=== PATIENT | female | born 1970 | race Caucasian/White ===

== ENCOUNTER 2020-09-13 09:06 | Outpatient (CLI) | payer OTHER, SELFPAY ==
--- NOTE | 2020-09-13 09:12 | MM_ITS ---
WS: [id number] Exam: [place] [id number] Date/Time of Exam: 09/13/2020 9:21 AM Reason For Exam: SCREENING VIEWS: MLO and CC views both breasts. Comparison made with prior exam of 09/06/2018. Findings: There was no sign of mass, architectural distortion or suspicious calcification in either breast. Fa tty MM/[place] [id number] Impression: BI-RADS: 2-Benign FOLLOW-UP: 1 Year Follow-up This mammogram was also analyzed by the Computer Aided Detection System R2 Imag e Samples And Repairs Preparer.
== END 2020-09-13 09:07 | disposition home or self-care (01) ==
LOC: RADSHAW 09:09
PROVIDERS: PCP Internal Medicine; Visit Provider Internal Medicine
DX: Z12.31 Encounter for screening mammogram for malignant neoplasm of breast (principal)
CPT/HCPCS: 77067

== ENCOUNTER 2021-04-11 11:41 | Outpatient (CLI) | payer OTHER, SELFPAY ==
--- NOTE | 2021-04-11 11:53 | XR_ITS ---
WS: [id number] Exam: XR foot RT min 3V* [id number] Date/Time of Exam: 04/11/2021 11:53 AM Reason For Exam: RIGHT FOOT/ANKLE PAIN There is a nondisplaced fracture involving the proximal fifth metatarsal. No other fractures are seen . No soft tissue foreign bodies. Small plantar heel spur. XR/XR foot RT min 3V* [id number] IMPRESSION: 1. Nondisplaced proximal fifth metatarsal fracture.
== END 2021-04-11 11:42 | disposition home or self-care (01) ==
PROVIDERS: PCP Internal Medicine; Visit Provider Nurse Practitioner Family
DX: S92.354A Nondisplaced fracture of fifth metatarsal bone, right foot, initial encounter for closed fracture (principal); X58.XXXA Exposure to other specified factors, initial encounter
CPT/HCPCS: 73630

== ENCOUNTER → 2021-04-18 13:46 | Outpatient (BNVA) | payer OTHER, SELFPAY | PROVIDERS: PCP Internal Medicine; Referring Provider Nurse Practitioner Family; Visit Provider Podiatrist Foot & Ankle Surgery | DX: S92.354A Nondisplaced fracture of fifth metatarsal bone, right foot, initial encounter for closed fracture (principal); M79.671 Pain in right foot; X58.XXXA Exposure to other specified factors, initial encounter | CPT/HCPCS: 73630 ==

== ENCOUNTER 2021-04-18 15:20 | Outpatient (CLI) | payer OTHER, SELFPAY | END 2021-04-18 15:21 | disposition home or self-care (01) | LOC: SPT 15:21 | PROVIDERS: PCP Internal Medicine; Visit Provider Podiatrist Foot & Ankle Surgery | DX: Z46.89 Encounter for fitting and adjustment of other specified devices (principal); S92.354D Nondisplaced fracture of fifth metatarsal bone, right foot, subsequent encounter for fracture with routine healing; X58.XXXD Exposure to other specified factors, subsequent encounter | CPT/HCPCS: 97760; L4361 ==

== ENCOUNTER → 2021-05-10 14:20 | Outpatient (BNVA) | payer OTHER, SELFPAY | PROVIDERS: PCP Internal Medicine; Visit Provider Podiatrist Foot & Ankle Surgery | DX: S92.354A Nondisplaced fracture of fifth metatarsal bone, right foot, initial encounter for closed fracture (principal); M79.671 Pain in right foot; X58.XXXA Exposure to other specified factors, initial encounter | CPT/HCPCS: 73630 ==

== ENCOUNTER → 2021-06-08 14:53 | Outpatient (BNVA) | payer OTHER, SELFPAY | PROVIDERS: PCP Internal Medicine; Visit Provider Podiatrist Foot & Ankle Surgery | DX: S92.354D Nondisplaced fracture of fifth metatarsal bone, right foot, subsequent encounter for fracture with routine healing (principal); X58.XXXD Exposure to other specified factors, subsequent encounter | CPT/HCPCS: 73630 ==

== ENCOUNTER → 2021-06-27 14:57 | Outpatient (BNVA) | payer OTHER, SELFPAY | PROVIDERS: PCP Internal Medicine; Visit Provider Podiatrist Foot & Ankle Surgery | DX: S92.354A Nondisplaced fracture of fifth metatarsal bone, right foot, initial encounter for closed fracture (principal); M79.671 Pain in right foot; X58.XXXA Exposure to other specified factors, initial encounter | CPT/HCPCS: 73630 ==

== ENCOUNTER 2021-11-09 09:18 | Outpatient (CLI) | payer OTHER, SELFPAY ==
--- NOTE | 2021-11-09 09:31 | MM_ITS ---
WS: [id number] BILATERAL SCREENING DIGITAL MAMMOGRAM WITH CAD HISTORY: SCREENING COMPARISON: 09/13/2020, 09/11/2019 Bilateral CC and MLO views submitted. Computer aided detection analyzed. Breast composition: There are scattered areas of fibroglandular density. No suspicious masses, microc alcifications or architectural distortion. Benign scattered calcifications in each breast. MM/[place] [id number] IMPRESSION: BI-RADS: 2-Benign FOLLOW UP: 1 Year Follow-up
== END 2021-11-09 09:19 | disposition home or self-care (01) ==
PROVIDERS: PCP Internal Medicine; Visit Provider Internal Medicine
DX: Z12.31 Encounter for screening mammogram for malignant neoplasm of breast (principal)
CPT/HCPCS: 77067

== ENCOUNTER 2022-11-15 14:23 | Outpatient (CLI) | payer BC, SELFPAY ==
--- NOTE | 2022-11-15 14:42 | MM_ITS ---
WS: [id number] BILATERAL 3D TOMOSYNTHESIS DIGITAL SCREENING MAMMOGRAPHY WITH CAD CLINICAL INFORMATION: SCREENING HISTORY: Screening mammogram. No current complaints. COMPARISON: November 09, 2021 TECHNIQUE: Bilateral CC and MLO views. FINDINGS: Scattered fibroglandular densities bilaterally. No suspicious focal mass, asymmetry, calcifications, or architectural distortion. No evidence of malignancy. A few tiny incidental punctate calcifications . MM/[place] [id number] IMPRESSION: BI-RADS: 2-Benign FOLLOW UP: 1 Year Follow-up Recommend return to annual screening mammography.
== END 2022-11-15 14:24 | disposition home or self-care (01) ==
LOC: RAD 14:28
PROVIDERS: PCP Internal Medicine; Visit Provider Internal Medicine
DX: Z12.31 Encounter for screening mammogram for malignant neoplasm of breast (principal)
CPT/HCPCS: 77063; 77067

== ENCOUNTER 2022-11-28 15:36 | Outpatient (CLI) | payer BC, SELFPAY ==
--- NOTE | 2022-11-28 15:53 | US_ITS ---
WS: [id number] TRANSVAGINAL PELVIC ULTRASOUND HISTORY: MENORRHAGIA COMPARISON: None available. Uterus: 9.0 cm x 5.4 cm x 4.5 cm. Top normal size uterus is retroverted. Mixed echogenicity mass in t he anterior mid myometrium is calcified measuring 1.4 x 1.3 x 1.7 cm. There is a hypoechoic nodule bu lging from the uterine surface measuring 1.2 x 1.0 x 1.4 cm along the anterior inferior uterine segme nt. Endometrium: 1.4 cm. Very minimal prominence of the endometrium and increased echogenicity towards th e fundal portion of the endometrium. Right ovary: 2.5 cm x 2.0 cm x 2.2 cm. Normal size and vascularity, no cystic or solid masses. Small follicles. Left ovary: 1.6 cm x 1.3 cm x 1.6 cm. Normal size and vascularity, no cystic or solid masses. Small amount of free fluid. US/US transvaginal [id number] IMPRESSION: 1. Endometrium is top normal size with mild heterogeneity. Heterogeneous thick ening towards the fundal portion of the endometrium. Consider short-term ultras ound reevaluation versus hysteroscopy. 2. Uterine fibroids x2.
== END 2022-11-28 15:37 | disposition home or self-care (01) ==
PROVIDERS: PCP Internal Medicine; Visit Provider Internal Medicine
DX: N92.0 Excessive and frequent menstruation with regular cycle (principal); D25.9 Leiomyoma of uterus, unspecified
CPT/HCPCS: 76830

== ENCOUNTER 2023-03-07 13:44 | Outpatient (CLI) | payer BC, SELFPAY ==
--- NOTE | 2023-03-07 14:06 | US_ITS ---
WS: [id number] US transvaginal [id number] HISTORY: MENORRHAGIA COMPARISON: 11/28/2022 Uterus: 9.8 cm x 6.5 cm x 5.1 cm. Normal size retroverted uterus. Possible fibroid along the posterior inferior myometrium measuring 1. 0 x 0.9 x 1.1 cm. Small nabothian cysts in the cervix. Small calcification in the anterior uterus consistent with calci fied fibroid measures 2.0 x 1.0 x 1.9 cm. Endometrium: 1.0 cm. Normal appearing endometrium. Endometrium is not as heterogeneous as it was on t he prior study. No mass. Right ovary: 4.0 cm x 2.7 cm x 3.0 cm. Normal size and vascularity, no cystic or solid masses. Domina nt follicle measures 2.4 2.0 x 1.9 cm. Left ovary: 2.7 cm x 1.1 cm x 1.7 cm. Normal size and vascularity, no cystic or solid masses. No free fluid in the cul-de-sac. US/US transvaginal [id number] IMPRESSION: 1. Endometrium is normal size on today's exam. No heterogeneity or mass. 2. Retroverted uterus. 2 fibroids are identified. One of these fibroids is poli cified.
== END 2023-03-07 13:45 | disposition home or self-care (01) ==
PROVIDERS: PCP Internal Medicine; Visit Provider Internal Medicine
DX: N92.0 Excessive and frequent menstruation with regular cycle (principal); N85.4 Malposition of uterus
CPT/HCPCS: 76830

== ENCOUNTER 2023-12-12 15:01 | Outpatient (CLI) | payer OTHER, SELFPAY ==
--- NOTE | 2023-12-12 15:09 | MM_ITS ---
WS: [id number] BILATERAL 3D TOMOSYNTHESIS DIGITAL SCREENING MAMMOGRAPHY WITH CAD CLINICAL INFORMATION: SCREENING HISTORY: Screening mammogram. No current complaints. COMPARISON: 2022 TECHNIQUE: Bilateral CC and MLO views. FINDINGS: Scattered fibroglandular densities bilaterally. No suspicious focal mass, asymmetry, calcifications, or architectural distortion. No evidence of malignancy. Incidental punctate calcifications. IMPRESSION: MM/[place] [id number] BI-RADS: 2-Benign FOLLOW UP: 1 Year Follow-up Recommend return to annual screening mammography.
== END 2023-12-12 15:02 | disposition home or self-care (01) ==
LOC: RAD 15:01
PROVIDERS: PCP Internal Medicine; Visit Provider Internal Medicine
DX: Z12.31 Encounter for screening mammogram for malignant neoplasm of breast (principal)
CPT/HCPCS: 77063; 77067

== ENCOUNTER 2024-01-18 13:15 | Outpatient (CLI) | payer OTHER, SELFPAY ==
--- NOTE | 2024-01-18 13:21 | USCV_ITS ---
Ora Serrato Age: 53 Gender: F : 1970 Exam Date: 01/18/2024 14:20 Ordering Phys: Stephanie Cook MD Technologist: Joao Wylie [place] [facility] [place] Indication: murmur BP: 136 / 76 HR: 63 Rhythm: Sinus Technical Quality: Adequate MEASUREMENTS (Male / Female) Normal Values 2D ECHO LV Diastolic Diameter PLAX 3.7 cm 4.2 - 5.9 / 3.9 - 5.3 cm IVS Diastolic Thickness 1.3 cm 0.6 - 1.0 / 0.6 - 0.9 cm IVS Systolic Thickness 1.4 cm LVPW Diastolic Thickness 1.6 cm 0.6 - 1.0 / 0.6 - 0.9 cm LVPW Systolic Thickness 1.8 cm LVOT Diameter 2.0 cm LV Ejection Fraction 2D Teich 58.0 % LV Ejection Fraction MOD 2C 59.3 % LV Ejection Fraction 2C AL 60.5 % LA Diameter 3.1 cm RA Systolic Volume 4C AL 18.1 ml RA Systolic Volume 4C MOD 17.9 ml LA Sys Volume AL 38.6 cm cubed LA Sys Volume Index AL 19.8 cm cubed/m squared Aorta at Sinotubular Diameter 2.2 cm IVC Diameter 1.6 cm M-MODE LA Ao Ratio MM 1.4 AV Cusp Separation MM 1.8 cm DOPPLER AV Peak Velocity 118.0 cm/s LVOT Peak Velocity 103.0 cm/s AV Area Cont Eq vti 2.3 cm squared AV Area Cont Eq pk 2.8 cm squared MV Peak Velocity 343.0 cm/s MV Area PHT 5.5 cm squared Mitral E to A Ratio 0.9 TV Peak Velocity 119.0 cm/s TR Peak Velocity 131.0 cm/s TR Peak Gradient 6.9 mmHg TR Mean Velocity 91.0 cm/s TR Mean Gradient 3.8 mmHg TR Velocity Time Integral 25.5 cm PV Peak Velocity 161.7 cm/s RV Ejection Time 0.3 s FINDINGS Left Ventricle Left ventricle is normal in size. LV systolic function is normal with EF of 60 to 65%. No regional wall motion abnormalities are seen. Right Ventricle Normal in size and function. Right Atrium Normal in size. Left Atrium Normal in size. Mitral Valve Structurally normal mitral valve. Mild mitral regurgitation. Aortic Valve Structurally normal aortic valve. No significant stenosis or regurgitation. Tricuspid Valve Insufficient TR jet to evaluate RVSP. Pulmonic Valve Not well visualized Pericardium Normal Aorta Normal in size. IVC Appears to be normal CONCLUSIONS LV systolic function is normal with EF of 60 to 65%. Mild mitral regurgitation. No comparison studies are available. John Wayne MD (Electronically Signed) Final Date: 27 Jan 2024 14:24 S
== END 2024-01-18 13:16 | disposition home or self-care (01) ==
LOC: RAD 13:16
PROVIDERS: PCP Internal Medicine; Visit Provider Internal Medicine
DX: R01.1 Cardiac murmur, unspecified (principal); I34.0 Nonrheumatic mitral (valve) insufficiency
CPT/HCPCS: 93306

== ENCOUNTER → 2024-08-29 13:12 | Outpatient (BNVA) | payer OTHER, SELFPAY | PROVIDERS: PCP Internal Medicine; Visit Provider Obstetrics & Gynecology | DX: N92.0 Excessive and frequent menstruation with regular cycle (principal) | CPT/HCPCS: 83001; 84146; 84702; 85025 ==

== ENCOUNTER → 2024-09-16 11:02 | Outpatient (BNVA) | payer OTHER, SELFPAY | PROVIDERS: PCP Internal Medicine; Visit Provider Obstetrics & Gynecology | DX: D25.9 Leiomyoma of uterus, unspecified (principal) | CPT/HCPCS: 76830 ==

== ENCOUNTER 2025-01-13 15:03 | Observation (INO) | payer OTHER, SELFPAY ==
--- NOTE | 2025-01-08 10:21 | ANES.PREANE2 ---
Pre-Anesthetic Assessment Height/Weight: Height 5 ft 3 in Preop Diagnosis: Menorrhagia Operation Date: 01/13/25 13:00 Proposed Procedures p Laparoscopic Assist Vaginal Hysterectomy/bilateral salpingo-oophorectomy 45179, D25.1(Bilateral) - Shaheed Moreno MD Was Beta Edi taken within 24 hours: N/A Was Clonidine taken within 24 hours: N/A Social No alcohol and No tobacco Exam alert, oriented x 3, clear to auscultation bilaterally and regular rate & rhythm Airway Submandibular: within normal limits Cervical ROM: within normal limits Mallampati: Class II Dentition: full Anesthetic Plan ASA status: 2 Anesthesia: General Other: History of PONV following gallbladder surgery in 2020 NPO at midnight prior to surgery History of hypertension on losartan Insulin-dependent DM, Dexcom in place Will check preop BS prior to surgery Prior echo 2023 showing EF of 60 to 65% METs greater than 4 Plan for general anesthesia Medications/Allergies Home Medications ?Medication ?Instructions ?Recorded ?Confirmed ?Last Taken ?Type CAM boot #1 ea 04/18/21 10/06/24 Unknown Rx bupropion HCl 75 mg tablet 150 mg PO BID 04/18/21 01/08/25 1 Day Ago History ~01/07/25 cetirizine 10 mg capsule (Zyrtec) 10 mg PO DAILY PRN allergies 04/18/21 01/08/25 11/12/24 History insulin lispro protamine-lispro 10 unit SUBCUT QAM 04/18/21 01/08/25 1 Day Ago History 100 unit/mL (50-50) subcutaneous ~01/07/25 susp (Humalog Mix 50-50 Insuln U-100) losartan 25 mg tablet 25 mg PO DAILY 04/18/21 01/08/25 01/08/25 History atorvastatin 10 mg tablet 10 mg PO DAILY 08/29/24 01/08/25 1 Day Ago History ~01/07/25 blood-glucose sensor (Dexcom G6 08/29/24 10/06/24 Unknown History Sensor device) insulin pump cart,auto,BT,G6/7 08/29/24 10/06/24 Unknown History (Omnipod 5 G6-G7 Pods (Gen 5) subcutaneous cartridge) Allergies Allergy/AdvReac Type Severity Reaction Status Date / Time Penicillins Allergy Severe rash Verified 10/06/24 14:12 bee venom protein (honey bee) Allergy Unknown Verified 10/06/24 14:12 sulfamethoxazole (From Allergy ADR/ALGY-Hy Verified 10/06/24 14:12 Bactrim) potension trimethoprim (From Bactrim) Allergy ADR/ALGY-Hy Verified 10/06/24 14:12 potension PFSH Anesthesia Family History Father Hypertension Grandfather Stroke Mother Uterine cancer Denies family history of Colon cancer Ovarian cancer Prostate cancer Diabetes Heart disease Hyperlipidemia Breast cancer Thyroid disease Social History Smoking and tobacco/nicotine status: former use of tobacco/nicotine Data Anesthesia Cardiac Studies: Echocardiogram 01/18/24
[2025-01-13] VITALS (14 sets, daily range): BP systolic 94–172; BP diastolic 58–123; PULSE 71–97; RESP 13–21; TEMP 36.3–36.9; O2SAT 95–98; BMI 35.6
--- NOTE | 2025-01-13 06:05 | W.PM.OPSFHP ---
Same Day Surgery H&P Indication for Procedure/HPI DATE OF PROCEDURE: January 13, 2025 CHIEF COMPLAINT/INDICATIONFOR SURGICAL PROCEDURE: heavy menstrual bleeding PREOP DIAGNOSIS: Menorrhagia PLANNED PROCEDURE: Operation Date: 01/13/25 11:10 Proposed Procedures p Laparoscopic Assist Vaginal Hysterectomy/bilateral salpingo-oophorectomy 14649, D25.1(Bilateral) - Shaheed Moreno MD Medications/Allergies* Home Medications ?Medication ?Instructions ?Recorded ?Confirmed ?Type bupropion HCl 75 mg tablet 150 mg PO BID 04/18/21 01/08/25 History cetirizine 10 mg capsule (Zyrtec) 10 mg PO DAILY PRN allergies 04/18/21 01/08/25 History insulin lispro protamine-lispro 10 unit SUBCUT QAM 04/18/21 01/08/25 History 100 unit/mL (50-50) subcutaneous susp (Humalog Mix 50-50 Insuln U-100) losartan 25 mg tablet 25 mg PO DAILY 04/18/21 01/08/25 History atorvastatin 10 mg tablet 10 mg PO DAILY 08/29/24 01/08/25 History blood-glucose sensor (Dexcom G6 08/29/24 10/06/24 History Sensor device) insulin pump cart,auto,BT,G6/7 08/29/24 10/06/24 History (Omnipod 5 G6-G7 Pods (Gen 5) subcutaneous cartridge) Allergies/Adverse Reactions Allergy/AdvReac Type Severity Reaction Status Date / Time Penicillins Allergy Severe rash Verified 10/06/24 14:12 bee venom protein (honey bee) Allergy Unknown Verified 10/06/24 14:12 sulfamethoxazole (From Allergy ADR/ALGY-Hy Verified 10/06/24 14:12 Bactrim) potension trimethoprim (From Bactrim) Allergy ADR/ALGY-Hy Verified 10/06/24 14:12 potension Pertinent History/Comorbid Conditions* Family History (Updated 08/29/24 @ 08:23 by Eris Manzanares) Hypertension Father Uterine cancer Mother Stroke Grandfather Denies family history of Colon cancer Ovarian cancer Prostate cancer Diabetes Heart disease Hyperlipidemia Breast cancer Thyroid disease Social History Smoking and tobacco/nicotine status: former use of tobacco/nicotine Pertinent Exam Findings alert, oriented x 3, clear to auscultation bilaterally and regular rate & rhythm Recommendations Surgery/Procedure today Coding Level of Care Code Acute Code for Chg Fwd
[2025-01-13 10:29] LABS: Glucose Point of Care 127 mg/dL (70-110)
--- NOTE | 2025-01-13 11:50 | W.PM.OPSUD ---
Surgery/Procedure H&P Update DATE OF PROCEDURE: January 13, 2025 DATE H&P PERFORMED: 01/12/25 H&P UPDATE INFORMATION: I have reviewed H&P completed within last 30 days, I have examined patient prior to procedure and No changes to prior documentation PREOP DIAGNOSIS: menorrhagia PLANNED PROCEDURE: Operation Date: 01/13/25 11:10 Proposed Procedures p Laparoscopic Assist Vaginal Hysterectomy/bilateral salpingo-oophorectomy 28922, D25.1(Bilateral) - Shaheed Moreno MD
[2025-01-13] MEDS: sodium chloride 0.9% 1,000 ML 30 ML IV (11:59)
[2025-01-13] MEDS: metroNIDAZOLE IV 500 MG/100 ML PREMIX 100 MG IV (11:59)
[2025-01-13] MEDS: ceFAZolin 2,000 mg SDV 2000 MG IVP (12:00)
--- NOTE | 2025-01-13 12:48 | P.ANESUD_ITS ---
Pre-Anesthetic Update Pre-Anesthetic Assessment: Date of Surgery/Procedure: 01/13/25 Preop Nitza gnosis: menorrhagia Proposed Procedure: Operation Date: 01/13/25 11:10 Proposed Procedures p Laparoscopic Assist Vaginal Hysterectomy/bilateral salpingo-oophorectomy 14430, D25.1(Bilateral) - Shaheed Moreno MD Any changes to Pre-Anesthetic Assessment?: No Last Intake: Intake Last Liquid Date 01/12/25 Last Liquid Time 21:00 Last Solid Date 01/12/25 Last Solid Time 18:00 Vitals: Temperature 97.3 F L 01/13/25 10:02 Temperature Source Temporal Artery S can 01/13/25 10:02 Pulse Rate 71 01/13/25 10:02 Pulse Rhythm Regular 01/13/25 10:04 Pulse Strength 3+ Normal 01/13/25 10:04 Respiratory Rate 18 01/13/25 10:02 Blood Pressure 172/123 01/13/25 10:02 Blood Pressure Erica n 139 01/13/25 10:02 Pulse Oximetry 98 01/13/25 10:02 Oxygen Delivery Me thod Room Air 01/13/25 10:04 Exam: Pre-Anes Outpt Exam: alert and oriented x 3 Cardiac Studies: Echocardiogram 01/18/24
[2025-01-13] MEDS: lidocaine-epi 2% PF 1:200,000 20 mL SDV INJECTION (13:27)
[2025-01-13 15:41] LABS: Glucose Point of Care 220 mg/dL (70-110)
--- NOTE | 2025-01-13 15:50 | PM.OP ---
Operative Report Date of procedure: January 13, 2025 Pre-op diagnosis: heavy menstrual bleeding Post-op diagnosis: same Post-op findings: mildly enlarged uterus normal ovaries and tubes Procedure done: Laparoscopic assisted vaginal hysterectomy Bilateral salpingo-oophorectomy Implants: none Specimens removed/disposition: uterus, tubes, and ovaries Surgeon: Shaheed Moreno MD Anesthesia: General Estimated blood loss (mL): 300 Complications: none Findings: mildly enlarged uterus normal ovaries and tubes Condition: stable Disposition: PACU Brief History: 54 y.o. with h/o heavy menstrual bleeding Procedure: Informed consent was obtained, confirming the procedures with the patient prior to surgery. The patient was taken to the operating room, placed supine on the table. General endotracheal anesthesia was induced. Time-out review, including the procedures, was carried out and agreed to. The patient was placed in dorsolithotomy position for laparoscopic surgery. The abdomen and perineum were prepped and draped in the usual sterile fashion. A walls catheter was placed which drained clear urine. A Zumi uterine elevator was placed via the cervix for manipulation of the uterus. An umbilical skin incision was made measuring approximately 1 cm. A Veress needle was inserted. After confirming intraperitoneal entry, a pneumoperitoneum was achieved. The Veress needle was removed. A trocar with sheath was placed. A laparoscope was inserted and used to visualize the pelvic organs. Normal uterus, tubes, and ovaries were seen. Two additional skin incisions were made measuring 0.5 cm each in the suprapubic and left lower quadrant. 5 mm trocars with sheaths were inserted via these incisions under laparoscopic visualization. A Ligasure device and endograsper were placed. The Ligasure device was used to divide the round ligaments on both sides followed by the uteroovarian ligaments slightly lateral to the ovaries. The left and right suspensory ligaments attaching the ovaries to the pelvic sidewall were then coagulated and divided, removing the bilateral ovaries and tubes. No bleeding was seen. It was then decided to proceed vaginally to complete the vaginal hysterectomy portion of the procedure. The pneumoperitoneum was allowed to escape. The Zumi was removed. A vaginal Bookwalter retractor was placed. The cervicovaginal junction was incised and the anterior and posterior cul-de-sacs were entered without any injury to the underlying organs including the bowel and the bladder. The uterine vessels on both sides were then divided and coagulated without any difficulties. The uterus, tubes, and ovaries were removed. Additional stitches of O-Vicryl were used to control bleeding from the vascular stumps. The vaginal cuff was then closed using a running suture of O-Vicryl. The uterosacral ligaments were suspended. The pneumoperitoneum was re-instituted and the pelvis was examined using the laparoscope to confirm good hemostasis. Following this, all instruments were removed from the abdomen after the pneumoperitoneum was allowed to escape. The laparoscopic skin incisions were then closed using 4-O skin sutures. The patient was placed supine and taken to the recovery room. Postoperative condition stable EBL: 300 cc Complications: none To PACU in good condition
--- NOTE | 2025-01-13 15:55 | ANE.PACU2 ---
Inpatient post-anesthesia follow up: Airway intact: Yes Vital signs: Temperature 97.8 F Pulse Rate 80 Respiratory Rate 21 Blood Pressure 117/61 Pulse Oximetry 96 Oxygen Delivery Me thod Room Air Oxygen Flow Rate Fraction of Inspir ed Oxygen Hydration adequate: Yes Nausea and vomiting: No Pain level: 1 Mental status: Baseline
--- NOTE | 2025-01-13 16:10 | PC.NURSE ---
1605 - pt accepted into OB 10 with Katie RN at side - yariel pad in place with dime size bleeding - BP 110/66 - pulse 77 - 02 98% - temp 98.0 -pt in no distress upon this nurse exiting care
[2025-01-14 06:00] VITALS: BP 145/99; PULSE 75; RESP 17; TEMP 36.7; O2SAT 100
[2025-01-14 07:00] LABS: Hematocrit 39.2 % (36-47); Mean Corpuscular HGB Conc 34.2 g/dL (30-55); Mean Corpuscular Hemoglobin 31.5 pg (27-33); Mean Corpuscular Volume 92.2 fl (85-98); Mean Platelet Volume 10.2 fL (7.4-10.4); Platelet Count 286 10^3/cmm (157-399); Red Blood Count 4.25 10^6/uL (3.85-5.65); Red Cell Distribution Width 12.7 % (12.1-15.1); White Blood Count 12.87 10^3/uL (3.29-11.43)
[2025-01-14] MEDS: buPROPion HCL 75 MG TABLET PO (08:28)
[2025-01-14] MEDS: losartan 50 mg Tablet 25 MG PO (08:28)
[2025-01-14] MEDS: cetirizine 10 mg Tablet PO (08:29)
[2025-01-14 11:00] VITALS: BP 161/82; PULSE 68; RESP 16; TEMP 36.4; O2SAT 100
--- NOTE | 2025-01-14 14:10 | P.PN_ITS ---
MALT LOADER Subjective 2 Subjective: Interval history: No c/o Minimal discomfort No bleeding Eating, voiding, ambulating well Vitals/I&O/Wt Last Vital Signs Temp 97.5 F L 01/14/25 11:00 Pulse 68 01/14/25 11:00 Resp 16 01/14/25 11:00 BP 161/82 01/14/25 11:00 Pulse Ox 100 01/14/25 11:00 O2 Del Method Room Air 01/14/25 06:00 Physical Exam 2 Narrative: General comfortable, awake, alert VS afebrile Lungs: clear Cor: RRR Abd: soft, nontender Ext: no edema Urinary Catheter Management: Nicole: Cath Placed During This Visit: yes, but has since been removed by the nurse Reason for Continuing Indwelling Catheter: Perioperative Use in Selected Surgeries Urinary Catheter Date of Insertion: 01/13/25 Urinary Catheter Time of Insertion: 12:31 Date Urinary Catheter Removed: 01/13/25 Time Urinary Catheter Discontinued: 20:15 Data 01/14/25 06:08 A&P Assessment and plan (1) S/P hysterectomy with oophorectomy: s/p LAVH, BSO, POD #1 doing well plan discharge to home RTO one week Call / return if fever, chills, nausea, vomiting, pain, leg swelling / pain, vaginal bleeding PDMP PDMP Reviewed: Not Reviewed Attestations 2 Medical Necessity Statement*: patient s/p hysterectomy, plan discharge to home today Coding Level of Care Code Acute Code for Chg Fwd Diagnoses S/P hysterectomy with oophorectomy Z90.710; Z90.721
--- NOTE | 2025-01-14 15:05 | P.DS_ITS ---
Discharge Providers DRY WALL PLASTERER Date of Admission: 01/13/25 15:03 Date of Discharge: 01/14/25 Attending Provider at Admission: Shaheed Moreno MD Attending Provider at Discharge: Shaheed oMreno MD Consults: none Primary DRY WALL PLASTERER: Shaheed Moreno MD Primary Care Provider: Stephanie Cook MD Diagnoses at Discharge Discharge Diagnosis (1) S/P hysterectomy with oophorectomy: Details from hospital stay: 54 y.o. h/o heavy menstrual bleeding scheduled for hysterectomy and bilateral salpingo-oophorectomy patient underwent laparoscopic-assisted vaginal hysterectomy and bilateral salpingo-oophorectomy without any complications patient did well postop She was afebrile She was eating, voiding, and ambulating well Patient was discharged to home on the first postoperative day Status: Acute Reason for Visit Reason for Visit: N95.0 Brief History: 54 y.o. h/o heavy menstrual bleeding scheduled for hysterectomy and bilateral salpingo-oophorectomy Hospital Course Hospital Course 54 y.o. h/o heavy menstrual bleeding scheduled for hysterectomy and bilateral salpingo-oophorectomy patient underwent laparoscopic-assisted vaginal hysterectomy and bilateral salpingo-oophorectomy without any complications patient did well postop She was afebrile She was eating, voiding, and ambulating well Patient was discharged to home on the first postoperative day Physical Exam Narrative: General comfortable, awake, alert VS afebrile Lungs: clear Cor: RRR Abd: soft, nontender Ext: no edema Urinary Catheter Management: Nicole: Cath Placed During This Visit: yes, but has since been removed by the nurse Reason for Continuing Indwelling Catheter: Perioperative Use in Selected Surgeries Urinary Catheter Date of Insertion: 01/13/25 Urinary Catheter Time of Insertion: 12:31 Date Urinary Catheter Removed: 01/13/25 Time Urinary Catheter Discontinued: 20:15 History History History 2 Term 2 0 Miscarriages/Ectopic 0 Living Children 2 Discharge Data Studies Completed and Pending Completed Studies During Hospitalization Category Date Time Status Pathology: Surgical [PTH] Routine Pth 01/13/25 14:53 Completed Laboratory Results WBC 12.87 10^3/uL (3.29-11.43) H 01/14/25 06:08 RBC 4.25 10^6/uL (3.85-5.65) 01/14/25 06:08 Hgb 13.40 g/dL (11.27-16.99) 01/14/25 06:08 Hct 39.2 % (36-47) 01/14/25 06:08 MCV 92.2 fl (85-98) 01/14/25 06:08 MCH 31.5 pg (27-33) 01/14/25 06:08 MCHC 34.2 g/dL (30-55) 01/14/25 06:08 RDW 12.7 % (12.1-15.1) 01/14/25 06:08 Plt Count 286 10^3/cmm (157-399) 01/14/25 06:08 MPV 10.2 fL (7.4-10.4) 01/14/25 06:08 POC Glucose 220 mg/dL (70-110) H 01/13/25 15:38 Procedures Performed laparoscopic-assisted vaginal hysterectomy and bilateral salpingo-oophorectomy Vitals Last Vital Signs Temp 97.5 F L 01/14/25 11:00 Pulse 68 01/14/25 11:00 Resp 16 01/14/25 11:00 BP 161/82 01/14/25 11:00 Pulse Ox 100 01/14/25 11:00 O2 Del Method Room Air 01/14/25 06:00 Results Labs OB ([facility]): Hct, (36-47) 39.2 % 01/14/25 Hgb, (11.27-16.99) 13.40 g/dL 01/14/25 Plt Count, (157-399) 286 10^3/cmm 01/14/25 FSH 64.5 mIU/mL 08/29/24 Ser , Semi-Qnt 1.84 mIU/mL 08/29/24 Prolactin, (4.8-23.3) 6.77 ng/mL 08/29/24 Discharge Plan Discharge Patient Disposition: Home Condition: Stable Prescriptions: Continued Humalog Mix 50-50 Insuln U-100 100 unit/mL (50-50) suspension 10 unit SUBCUT QAM bupropion HCl 75 mg tablet 150 mg PO BID Rx Instructions: administer 6 hours apart Zyrtec 10 mg capsule 10 mg PO DAILY PRN (Reason: allergies) (DME) CAM boot See Rx Instructions .Route .MEDSUPPLY Qty: 1 0RF Rx Instructions: As directed. (DME) Omnipod 5 G6-G7 Pods (Gen 5) Cartridge See Rx Instructions .Route Rx Instructions: As directed (DME) Dexcom G6 Sensor Device See Rx Instructions .Route Rx Instructions: As directed atorvastatin 10 mg tablet 10 mg PO DAILY No Action losartan 25 mg tablet 50 mg PO DAILY gabapentin 300 mg capsule 300 mg PO TID Discharge Orders: Discharge Order (Routine); Ordered 01/14/25 Ordered By: Shaheed Moreno Referrals: Shaheed Moreno MD [Physician, DRY WALL PLASTERER] - 01/19/25 8:45 am Referral Note: 1 week post-op [facility] Discharge Diet: Usual diet Discharge Activity: Increase activity as tolerated Patient Instructions: Acute Wound Care (DC), Salpingo-Oophorectomy (GEN), Laparoscopic Hysterectomy (GEN), OB Laproscopic Surgery - [facility], Opioid Safety, Post Anesthesia Care Activity Restrictions/Additional Instructions: no heavy lifting x 8 weeks after surgery no intercourse x 8 weeks after surgery Discharge Attestations DRY WALL PLASTERER Time Spent in Discharge Care*: less than 30 min Coding Level of Care Code Acute Code for Chg Fwd Diagnoses S/P hysterectomy with oophorectomy Z90.710; Z90.721
== END 2025-01-14 11:05 | disposition home or self-care (01) ==
LOC: OBGYN 15:04
PROVIDERS: Admitting Provider Obstetrics & Gynecology; PCP Internal Medicine; Visit Provider Obstetrics & Gynecology
PROC: 0UT9FZZ Resection of Uterus, Via Natural or Artificial Opening With Percutaneous Endoscopic Assistance (ICD-10-PCS; CPT 58552; principal; 2025-01-13 10:50)
PROC: (CPT 58661; 2025-01-13 10:50)
DX: N85.2 Hypertrophy of uterus (principal); N92.0 Excessive and frequent menstruation with regular cycle; I10 Essential (primary) hypertension; E11.9 Type 2 diabetes mellitus without complications; Z79.4 Long term (current) use of insulin; Z87.891 Personal history of nicotine dependence
CPT/HCPCS: 58552; 36415; 36416; 82962; 85027; 88307; G0378; J0690; J1100; J1200; J2250; J2405; J2704; J3010; J3490; J7030; J9999

== ENCOUNTER 2025-02-18 12:42 | Outpatient (CLI) | payer OTHER, SELFPAY ==
--- NOTE | 2025-02-18 12:46 | MM_ITS ---
WS: [id number] BILATERAL 3D TOMOSYNTHESIS DIGITAL SCREENING MAMMOGRAPHY WITH CAD CLINICAL INFORMATION: SCREENING HISTORY: Screening mammogram. No current complaints. COMPARISON: 2023 TECHNIQUE: Bilateral CC and MLO views. FINDINGS: Scattered fibroglandular densities bilaterally. No suspicious focal mass, asymmetry, calcifications, or architectural distortion. No evidence of malignancy. MM/MM scr BI tomosynthesis [id number] IMPRESSION: DENSITY: There are scattered areas of fibroglandular density. BI-RADS: 1 - Negative. FOLLOW UP: 1 Year Follow-up Recommend return to annual screening mammography.
== END 2025-02-18 12:43 | disposition home or self-care (01) ==
PROVIDERS: PCP Internal Medicine; Visit Provider Internal Medicine
DX: Z12.31 Encounter for screening mammogram for malignant neoplasm of breast (principal); R92.323 Mammographic fibroglandular density, bilateral breasts
CPT/HCPCS: 77063; 77067